=== PATIENT | female | born 1970 | race Caucasian/White ===

== ENCOUNTER 2017-06-01 06:20 | Emergency (ER) | payer SELFPAY ==
[~2017-06-01] VITALS: Ht 152.4 cm; Wt 72.6 kg
[~2017-06-01 06:20] MED LIST: ACET-8386 PO; IBUP-974 PO
--- NOTE | 2017-06-01 06:24 | NUR ---
PT GABRIEL BLS. TAKEN TO BED 5
[2017-06-01 06:28] VITALS: BP 134/84
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
--- NOTE | 2017-06-01 07:13 | NUR ---
RECEIVED REPORT FROM MAXX TITUS/ MAXX CRENSHAW.Patient appears to be resting comfortably in bed. Vital Signs within normal limits. Respirations even and unlabored.WILL CONTINUE TO MINITOR.
[2017-06-01] MEDS ORDERED: DIAZEPAM 5 MG TAB PO ONE (07:15)
[2017-06-01] MEDS ORDERED: KETOROLAC 30 MG/ML VIAL IM ONE (07:15)
[2017-06-01] MEDS ORDERED: BACITRACIN OINT 500 UNITS/GM PKT TP ONE (07:15)
--- NOTE | 2017-06-01 07:16 | NUR ---
Pt report given to DARIA. Transfer of care at this time.
--- NOTE | 2017-06-01 07:25 | NUR ---
ABASION WOUND DRESSING TO RLL DONE BY MARISA MISTRY.
--- NOTE | 2017-06-01 07:25 | NUR ---
Mely ennis in ED - 06/01/17 at 0735 by [facility] ABEASION WOUND DRESSING TO RLL DONE BY MARISA MISTRY.
--- NOTE | 2017-06-01 07:59 | NUR ---
PT BACK FROM X RAY& CT VIA AARON, ACCOMPANIED BY CABLE TELEVISION INSTALLER.
--- NOTE | 2017-06-01 08:10 | NUR ---
PT AMB TO RESTROOM.
--- NOTE | 2017-06-01 08:16 | NUR ---
PT STS PAIN 3/10. Patient appears to be resting comfortably in bed. Vital Signs within normal limits. Respirations even and unlabored.WILL CONTINUE TO MONITOR.
[2017-06-01 08:30] VITALS: BP 103/71
--- NOTE | 2017-06-01 08:30 | NUR ---
Patient discharged with v/s stable. Written and verbal after care instructions given and explained. Patient alert, oriented and verbalized understanding of instructions. Ambulatory with steady gait. All questions addressed prior to discharge. ID band removed. Patient advised to follow up with PMD. Rx of NAPROSYN & VALIUM given. Patient educated on indication of medication including possible reaction and side effects. Opportunity to ask questions provided and answered.
== END 2017-06-01 08:30 | disposition home or self-care (01) ==
LOC: MED 06:20
DX: S80.12XA Contusion of left lower leg, initial encounter (principal); S09.90XA Unspecified injury of head, initial encounter; R07.89 Other chest pain; Z79.899 Other long term (current) drug therapy; Z90.89 Acquired absence of other organs; V49.59XA Passenger injured in collision with other motor vehicles in traffic accident, initial encounter; Y93.89 Activity, other specified; Y92.89 Other specified places as the place of occurrence of the external cause; Y99.8 Other external cause status
CPT/HCPCS: 70450; 71010; 73590; 81025; 96372; 99284; J1885

== ENCOUNTER 2022-02-20 15:06 | Emergency (ER) | payer BC ==
[~2022-02-20] VITALS: Ht 152.4 cm; Wt 76.2 kg
[2022-02-20 15:23] VITALS: BP 134/76
--- NOTE | 2022-02-20 15:44 | NUR ---
Note loli in EDM - 02/20/22 at 1813 by PHSEP Patient discharged with v/s stable. Written and verbal after care instructions FOR PYLENEPHRITIS given and explained. Patient alert, oriented and verbalized understanding of instructions. Ambulatory with steady gait. All questions addressed prior to discharge. ID band removed. Patient advised to follow up with PMD. Rx of BACTRIM TAB given. Opportunity to ask questions provided and answered.
[2022-02-20] MEDS ORDERED: ONDANSETRON 4 MG ODT PO ONE (15:55)
--- NOTE | 2022-02-20 16:04 | NUR ---
PT AMBULATED TO ER BED 2
[2022-02-20] MEDS ORDERED: cefTRIAXone 1,000 MG in LIDOCAINE MPF 1% 2.1 ML IM ONE (16:20)
[2022-02-20] MEDS ORDERED: LIDOCAINE MPF 1% 5 ML ONE (16:30)
[2022-02-20] MEDS ORDERED: cefTRIAXone 1,000 MG VIAL ONE (16:30)
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
[2022-02-20] MEDS ORDERED: SULF-58 PO ×2 (17:20→17:48)
--- NOTE | 2022-02-20 17:35 | NUR ---
PT SWABBED FOR COVID(SHAWNA) . HANDED TO LAB
--- NOTE | 2022-02-20 17:44 | NUR ---
Patient discharged with v/s stable. Written and verbal after care instructions FOR PYLENEPHRITIS given and explained. Patient alert, oriented and verbalized understanding of instructions. Ambulatory with steady gait. All questions addressed prior to discharge. ID band removed. Patient advised to follow up with PMD. Rx of BACTRIM TAB given. Opportunity to ask questions provided and answered.
--- NOTE | 2022-02-20 17:45 | NUR ---
The patient's care was reviewed and supervised by Nellie Rajan RN.
== END 2022-02-20 18:12 | disposition home or self-care (01) ==
LOC: MED 15:06
DX: N39.0 Urinary tract infection, site not specified (principal); Z20.822 Contact with and (suspected) exposure to COVID-19; N12 Tubulo-interstitial nephritis, not specified as acute or chronic; R11.0 Nausea; R03.0 Elevated blood-pressure reading, without diagnosis of hypertension; Z90.49 Acquired absence of other specified parts of digestive tract; Z79.899 Other long term (current) drug therapy
CPT/HCPCS: 76770; 81002; 81025; 87426; 96372; 99284; J0696; J2001; Q0092; Q0162; 99283